=== PATIENT | female | born 1960 | race Two or more races ===

== ENCOUNTER 2016-04-10 15:06 | Emergency (ER) | payer OTHER ==
[2016-04-10 15:11] VITALS: BP 149/90; PULSE 84; TEMP 98.5; BMI 33.5
--- NOTE | 2016-04-10 16:44 | PDOC ---
History of Present Illness - General Chief Complaint: Redness To Affected Area Stated Complaint: LEG INFECTION Time Seen by Provider: 04/10/16 16:24 History Source: Patient Exam Limitations: No Limitations - History of Present Illness Initial Comments: 04/10/16 16:51 Daughter brought mother to emergency department for evaluation of spreading erythematous mildly pruritic, mildly painful lesions to her right leg. States started with one "blister" that was clear fluid-filled that's quickly spread to a larger extensive area now covering approximately a 3 cm area with multiple bullae. Has now 1 erythematous lesion inferior to the site that is approximately 1 cm, also has 3-4 different erythematous lesions without bullae to the superior aspect of right thigh. No streaking, mildly warm to touch, another on body. No family members are affected, unknown insect infestation at home, no recent travel, patient denies any other recent URI, illness, or fevers. Have been using bacitracin ointment and hydrocortisone with minimal result, in fact her spreading. 04/10/16 18:22 Timing/Duration: reports: getting worse Severity: Yes: mild, moderate Location: reports: extremities Respiratory Risk Factors: reports: insect bite Associated Symptoms: denies: denies symptoms Past History - Travel Traveled outside of the country in the last 30 days: No Close contact w/someone who was outside of country & ill: No - Past Medical History Allergies/Adverse Reactions: Allergies Allergy/AdvReac Type Severity Reaction Status Date / Time codeine Allergy Verified 04/10/16 15:06 Penicillins Allergy Verified 04/10/16 15:06 Home Medications: Ambulatory Orders Clindamycin [Cleocin -] 300 mg PO TID #21 capsule 04/10/16 Anemia: No Asthma: No Cancer: No Cardiac Disorders: No CVA: No COPD: No CHF: No Dementia: No Diabetes: No GI Disorders: No Disorders: No HTN: No Hypercholesterolemia: No Liver Disease: No Seizures: No Thyroid Disease: No - Psycho/Social/Smoking Cessation Hx Anxiety: No Suicidal Ideation: No Smoking History: Never smoked Have you smoked in the past 12 months: No If you are a former smoker, when did you quit?: 12 years ago Information on smoking cessation initiated: No Hx Alcohol Use: No Drug/Substance Use Hx: No Substance Use Type: None Review of Systems - Review of Systems Able to Perform ROS?: Yes Is the patient limited [place] proficient: Yes Constitutional: Yes: Symptoms Reported, See HPI, Malaise. No: Chills, Fever HEENTM: No: Symptoms Reported Respiratory: No: Symptoms reported Musculoskeletal: Yes: See HPI. No: Symptoms Reported, Joint Pain, Joint Swelling, Muscle Pain Integumentary: Yes: Symptoms Reported, See HPI, Erythema, Flushing, Lesions Neurological: No: Symptoms reported *Physical Exam - Vital Signs Last Vital Signs Temp Pulse Resp BP Pulse Ox 98.5 F 84 19 149/90 96 04/10/16 15:08 04/10/16 15:08 04/10/16 15:08 04/10/16 15:08 04/10/16 15:08 - Physical Exam General Appearance: Yes: Nourished, Appropriately Dressed. No: Apparent Distress HEENT: positive: TANESHA, Normal ENT Inspection, TMs Normal, Pharynx Normal Respiratory/Chest: positive: Lungs Clear, Normal Breath Sounds Gastrointestinal/Abdominal: positive: Soft Musculoskeletal: positive: Normal Inspection. negative: Decreased Range of Motion Extremity: positive: Normal Capillary Refill, Normal Range of Motion, Swelling. negative: Normal Inspection (3 cm area with multiple bullae. Has now 1 erythematous lesion inferior to the site that is approximately 1 cm, also has 3 -4 different erythematous lesions without bullae to the superior aspect of right thigh. 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 Patient has appointment with PMD in 2 days. Will start first dose of clindamycin here., *DC/Admit/Observation/Transfer Diagnosis at time of Disposition: Cellulitis Qualifiers: Site of cellulitis: extremity Site of cellulitis of extremity: lower extremity Laterality: right Qualified Code(s): L03.115 - Cellulitis of right lower limb - Discharge Dispostion Disposition: HOME Condition at time of disposition: Stable Admit: No - Prescriptions Prescriptions: Clindamycin [Cleocin -] 300 mg PO TID #21 capsule - Referrals Referrals: Gael Payton MD [Primary Care Provider] - - Patient Instructions Printed Discharge Instructions: DI for Cellulitis -- Adult Additional Instructions: Rest, keep area elevated. Avoid strenuous activity or exercise until wound is healed Use hot soaks to area to bring more blood to the surface and encourage drainage May change dressings as needed to keep clean - Allow water from shower to wash area thoroughly for 2-3 minutes, and pat dry upon exit of shower and replace dressing. Change his dressing daily until the wound is completely healed. May use Tylenol or Motrin for mild pain relief Clindamycin 300 mg tablets 3 times a day for 7 days Use stronger medications as directed and prescribed Continue all medications as prescribed Followup with private physician in 2-3 days for wound check Return to emergency Department for worsening swelling, pain, redness, fevers as needed - Post Discharge Activity Work/School Note: Back to Work
[2016-04-10] MEDS ORDERED: CLINDAMYCIN HCL 300 MG CAPSULE PO ONE (16:45)
[2016-04-10] MEDS ORDERED: CLINDAMYCIN HCL 150 MG CAPSULE (FP) ONE (16:52)
== END 2016-04-10 17:07 | disposition home or self-care (01) ==
LOC: JERFT 15:06 → JER 15:06 → JERFT 17:07
DX: L03.115 Cellulitis of right lower limb (principal)
CPT/HCPCS: 99281-25

== ENCOUNTER 2016-05-21 12:33 | Emergency (ER) | payer OTHER ==
[2016-05-21 12:45] VITALS: BP 127/72; PULSE 90; TEMP 98.7; BMI 32.5
--- NOTE | 2016-05-21 13:30 | PDOC ---
History of Present Illness - General Chief Complaint: Injury Stated Complaint: BACK PAIN Time Seen by Provider: 05/21/16 13:02 History Source: Patient Exam Limitations: No Limitations - History of Present Illness Initial Comments: 05/21/16 13:46 Patient here with daughter 2 weeks ago slipped on bathroom floor falling onto the right stridor with outstretched arm. States may have fallen onto an elevation in the bathroom striking her ribs/chest wall. Patient had a large bruise and tenderness acutely, which bruising resolved however pain to her rib cage has not.. Denies shortness of breath, has used Tylenol only. Occurred: reports: last week Pain Location: reports: chest Method of Injury: Yes: direct blow, fall Modifying Factors: improves with: cold therapy Loss of Consciousness: no loss of consciousness Associated Symptoms (Fall): denies symptoms Past History - Travel Traveled outside of the country in the last 30 days: No Close contact w/someone who was outside of country & ill: No - Past Medical History Allergies/Adverse Reactions: Allergies Allergy/AdvReac Type Severity Reaction Status Date / Time codeine Allergy Verified 05/21/16 12:39 Penicillins Allergy Verified 05/21/16 12:39 Home Medications: Ambulatory Orders Oxycodone HCl/Acetaminophen [Percocet 5-325 mg Tablet -] 1 - 2 tab PO Q4H PRN # 10 tablet MDD 4 05/21/16 Anemia: No Asthma: No Cancer: No Cardiac Disorders: No CVA: No COPD: No CHF: No Dementia: No Diabetes: No GI Disorders: No Disorders: No HTN: No Hypercholesterolemia: No Liver Disease: No Seizures: No Thyroid Disease: No Other medical history: NONE - Surgical History Abdominal Surgery: Yes (OVARIES AND F.TUBES) - Psycho/Social/Smoking Cessation Hx Anxiety: No Suicidal Ideation: No Smoking History: Never smoked Have you smoked in the past 12 months: No If you are a former smoker, when did you quit?: 12 years ago Information on smoking cessation initiated: No Hx Alcohol Use: No Drug/Substance Use Hx: No Substance Use Type: None Review of Systems - Review of Systems Able to Perform ROS?: Yes Is the patient limited [place]hi proficient: Yes Constitutional: Yes: Symptoms Reported, See HPI, Malaise HEENTM: Yes: Symptoms Reported Respiratory: Yes: Symptoms reported, See HPI, Other (pain with deep inspiration at right chest wall). No: Cough All Other Systems: Reviewed and Negative *Physical Exam - Vital Signs Last Vital Signs Temp Pulse Resp BP Pulse Ox 98.7 F 90 18 127/72 94 L 05/21/16 12:41 05/21/16 12:41 05/21/16 12:41 05/21/16 12:41 05/21/16 12:41 - Physical Exam General Appearance: Yes: Nourished, Appropriately Dressed, Apparent Distress, Mild Distress HEENT: positive: TANESHA, Normal ENT Inspection, TMs Normal, Pharynx Normal Neck: positive: Supple. negative: Tender Respiratory/Chest: positive: Lungs Clear, Other (tenderness reproduced along midpoint axillary line at right side ribs 678, no crepitus or step-offs but is tender to touch along those rib borders. No obvious step-offs or deformities noted..). negative: Respiratory Distress, Decreased Breath Sounds Gastrointestinal/Abdominal: positive: Normal Bowel Sounds, Soft Musculoskeletal: positive: Normal Inspection, Decreased Range of Motion. 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, Fully Oriented, Alert, Normal Mood/ Affect ED Treatment Course - RADIOLOGY Radiology Studies Ordered: Category Date Time Status RIBS RIGHT SIDE [RAD] Stat Radiology 05/21/16 13:26 Ordered Medical Decision Making - Medical Decision Making 05/21/16 14:10 no fractures/PX noted in Xray 05/21/16 14:11 *DC/Admit/Observation/Transfer Diagnosis at time of Disposition: Contusion of rib Qualifiers: Encounter type: initial encounter Laterality: right Qualified Code(s): S20.211A - Contusion of right front wall of thorax, initial encounter - Discharge Dispostion Disposition: HOME Condition at time of disposition: Stable Admit: No - Referrals Referrals: Gael Payton MD [Primary Care Provider] - - Patient Instructions Printed Discharge Instructions: DI for Rib Contusion Additional Instructions: Rest, ice to area on and off for 15 minutes 4-6 times a day Avoid heavy lifting or exercise until pain and swelling is resolved or until further directed Followup with private physician in one to 2 days if not improving, if significantly improved may wait one week for followup May use ibuprofen 2-200 mg tablets every 6 hours as needed for pain May use Percocet for severe pain - Post Discharge Activity Work/School Note: Back to Work
== END 2016-05-21 14:12 | disposition home or self-care (01) ==
LOC: JERFT 12:33
DX: S20.211A Contusion of right front wall of thorax, initial encounter (principal); W01.198A Fall on same level from slipping, tripping and stumbling with subsequent striking against other object, initial encounter; Y93.89 Activity, other specified; Y92.031 Bathroom in apartment as the place of occurrence of the external cause
CPT/HCPCS: 71101-TC-RT; 99281-25

== ENCOUNTER 2021-08-31 04:15 | Day surgery (SDC) | payer OTHER ==
[2021-08-25 11:37] VITALS: BMI 31.6
[2021-08-31 11:58] VITALS: TEMP 97
[2021-08-31 12:48] VITALS: BP 137/69; PULSE 70
== END 2021-08-31 13:10 | disposition home or self-care (01) ==
LOC: JASU-ENDO 04:15
PROVIDERS: ATTEND Internal Medicine Gastroenterology
PROC: 0DBP8ZX Excision of Rectum, Via Natural or Artificial Opening Endoscopic, Diagnostic (ICD-10-PCS; 2021-08-31)
PROC: 0DBL8ZX Excision of Transverse Colon, Via Natural or Artificial Opening Endoscopic, Diagnostic (ICD-10-PCS; 2021-08-31)
PROC: 3E0H8KZ Introduction of Other Diagnostic Substance into Lower GI, Via Natural or Artificial Opening Endoscopic (ICD-10-PCS; 2021-08-31)
PROC: 0DBN8ZX Excision of Sigmoid Colon, Via Natural or Artificial Opening Endoscopic, Diagnostic (ICD-10-PCS; principal; 2021-08-31 11:45)
DX: Z12.11 Encounter for screening for malignant neoplasm of colon (principal); D12.3 Benign neoplasm of transverse colon; D12.5 Benign neoplasm of sigmoid colon; K57.30 Diverticulosis of large intestine without perforation or abscess without bleeding; K64.8 Other hemorrhoids
CPT/HCPCS: 88305-TC

== ENCOUNTER 2022-08-22 04:28 | Day surgery (SDC) | payer OTHER ==
[2022-08-18 11:53] VITALS: BMI 32.8
[2022-08-22 10:09] VITALS: TEMP 97.8
[2022-08-22 10:47] VITALS: BP 127/76; PULSE 65; RESP 19
== END 2022-08-22 11:11 | disposition home or self-care (01) ==
LOC: JASU-ENDO 04:28
PROVIDERS: ATTEND Internal Medicine Gastroenterology
PROC: 0DBL8ZX Excision of Transverse Colon, Via Natural or Artificial Opening Endoscopic, Diagnostic (ICD-10-PCS; 2022-08-22)
PROC: 0DBP8ZX Excision of Rectum, Via Natural or Artificial Opening Endoscopic, Diagnostic (ICD-10-PCS; 2022-08-22)
PROC: 0DBK8ZX Excision of Ascending Colon, Via Natural or Artificial Opening Endoscopic, Diagnostic (ICD-10-PCS; principal; 2022-08-22 09:30)
DX: Z12.11 Encounter for screening for malignant neoplasm of colon (principal); D12.2 Benign neoplasm of ascending colon; D12.3 Benign neoplasm of transverse colon; D12.8 Benign neoplasm of rectum; K57.30 Diverticulosis of large intestine without perforation or abscess without bleeding; K64.8 Other hemorrhoids; Z86.010 Personal history of colon polyps; I10 Essential (primary) hypertension
CPT/HCPCS: 88305-TC